=== PATIENT | male | born 1955 ===

== ENCOUNTER 2023-01-16 08:54 | Inpatient (IN) | payer OTHER ==
[~2023-01-16] VITALS: Ht 172.7 cm; Wt 94.8 kg
[2023-01-18] MEDS ORDERED: XIGDUO XR 5 MG1 EAC1 PO (16:21)
[2023-01-18] MEDS ORDERED: [UNRECOGNIZED DRUG - OTHER] PO (16:21)
[2023-01-18] MEDS ORDERED: HORIZANT300 MG PO (16:22)
[2023-01-18] MEDS ORDERED: COZAAR100 MG PO (16:22)
[2023-01-18] MEDS ORDERED: FENOFIBR PO (16:22)
[2023-01-18] MEDS ORDERED: CRESTOR20 MG PO (16:22)
[2023-01-18] MEDS ORDERED: LASIX20 MG PO (16:23)
[2023-01-18] MEDS ORDERED: TOPROL XL50 M1 PO (16:23)
[2023-02-13] MEDS ORDERED: GABAPENTIN300 M2 (11:14)
[2023-02-13] MEDS ORDERED: DOXAZOSIN MESYLA4 MG (11:14)
[2023-02-13] MEDS ORDERED: FENOFIBRATE160 MG (11:14)
[2023-02-13] MEDS ORDERED: ISOSORBIDE MONO60 M2 (11:16)
[2023-02-19] MEDS ORDERED: HYOSCYAMINE0.125 M1 SL (11:27)
[2023-02-19] MEDS ORDERED: PEPCID AC20 MG PO (11:27)
[2023-02-19] MEDS ORDERED: TRAM1TAB98 PO (11:27)
[2023-02-19] MEDS ORDERED: INTESTINEX680 M1 PO (11:28)
== END 2023-02-19 13:38 | disposition home or self-care (01) | DRG 329 ==
LOC: SURH 01-23 11:45 → O/R 02-13 05:50 → SURH 02-13 07:00
PROVIDERS: ADMIT Surgery; ATTEND Surgery
PROC: 0DTP4ZZ Resection of Rectum, Percutaneous Endoscopic Approach (ICD-10-PCS; 2023-02-13)
PROC: 4A1BXSH Monitoring of Gastrointestinal Vascular Perfusion using Indocyanine Green Dye, External Approach (ICD-10-PCS; 2023-02-13)
PROC: 0DJD8ZZ Inspection of Lower Intestinal Tract, Via Natural or Artificial Opening Endoscopic (ICD-10-PCS; 2023-02-13)
PROC: 0D1B4Z4 Bypass Ileum to Cutaneous, Percutaneous Endoscopic Approach (ICD-10-PCS; principal; 2023-02-13 07:00)
DX: C20 Malignant neoplasm of rectum (principal); K82.2 Perforation of gallbladder

== ENCOUNTER 2023-07-24 10:41 | Inpatient (IN) | payer OTHER ==
[~2023-07-24] VITALS: Ht 172.7 cm; Wt 81.6 kg
[~2023-07-24 10:41] MED LIST: COZAAR100 MG PO; CRESTOR20 MG PO; DOXAZOSIN MESYLA4 MG; FENOFIBR PO; FENOFIBRATE160 MG; GABAPENTIN300 M2; HORIZANT300 MG PO; HYOSCYAMINE0.125 M1 SL; INTESTINEX680 M1 PO; ISOSORBIDE MONO60 M2; LASIX20 MG PO; PEPCID AC20 MG PO; TOPROL XL50 M1 PO; TRAM1TAB98 PO; XIGDUO XR 5 MG1 EAC1 PO; [UNRECOGNIZED DRUG - OTHER] PO
[2023-07-24] MEDS ORDERED: LEVOTHYROXINE25 MCG PO (11:17)
[2023-07-24] MEDS ORDERED: LOSARTAN-HCTZ1 EAC2 PO (11:17)
[2023-07-27 07:01] LABS: HEMATOCRIT 35.2 % (39.0-48.0); HEMOGLOBIN 11.9 g/dL (13-16.00); MEAN CELL VOLUME 87.5 fL (80.0-100.00); MEAN CORPUSCULAR HEMOGLOBIN 29.5 pg (27.00-32.0); MEAN CORPUSCULAR HGB CONC 33.8 g/dl (32.0-36.0); PLATELET COUNT 347 K/uL (150-450); RED BLOOD COUNT 4.02 M/uL (4.00-6.00); RED CELL DISTRIBUTION WIDTH 14.6 % (11.5-14.5)
[2023-07-27 07:11] LABS: ALBUMIN 3.5 gm/dL (3.4-5.0); CALCIUM 9.8 mg/dL (8.5-10.1); CREATININE SERUM 0.76 mg/dL (0.70-1.30); GFR 102.3; MAGNESIUM 1.7 mg/dL (1.8-2.4); PHOSPHOROUS 3.5 mg/dL (2.5-4.9); POTASSIUM 5.12 mEq/L (3.5-5.1)
[2023-07-29] MEDS ORDERED: NEURONTIN300 MG PO (09:59)
[2023-07-29] MEDS ORDERED: ACETAMINOPHEN500 M2 PO (09:59)
[2023-07-29] MEDS ORDERED: INTESTINEX680 M1 PO (09:59)
== END 2023-07-29 11:34 | disposition home or self-care (01) | DRG 348 ==
LOC: O/R 07-26 05:50 → SURG 07-26 07:00 → SURH 07-26 09:26 → SURG 07-26 10:45 → SURH 07-29 11:34
PROVIDERS: ADMIT Surgery; ATTEND Surgery
PROC: 0DBB4ZZ Excision of Ileum, Percutaneous Endoscopic Approach (ICD-10-PCS; principal; 2023-07-26 07:00)
DX: C20 Malignant neoplasm of rectum (principal); K92.2 Gastrointestinal hemorrhage, unspecified; R19.4 Change in bowel habit